=== PATIENT | female | born 1995 | race Two or more races ===

== ENCOUNTER → 2024-09-03 | Day surgery (SDC) | payer OTHER ==
[2024-08-28 10:25] LABS: HEMATOCRIT 38.9 % (36.0-45.00); HEMOGLOBIN 13.3 g/dL (12.0-15.00); MEAN CELL VOLUME 92.5 fL (80.00-100.00); MEAN CORPUSCULAR HEMOGLOBIN 31.6 pg (27.00-32.0); MEAN CORPUSCULAR HGB CONC 34.2 g/dl (32.0-36.0); PLATELET COUNT 284 K/uL (150-450); RED BLOOD COUNT 4.21 M/uL (4.00-6.00); RED CELL DISTRIBUTION WIDTH 13.4 % (11.5-14.5)
[2024-08-28 10:27] LABS: PH,URINE 7.5 (5.0-8.0); URINE APPEARANCE Clear; URINE BILIRRUBIN Negative (NEGATIVE); URINE BLOOD Negative; URINE COLOR Yellow; URINE GLUCOSE Negative (NEGATIVE); URINE KETONE Negative (NEGATIVE); URINE LEUKOCYTE Trace; URINE NITRATE Negative; URINE PROTEIN Negative (NEGATIVE)
[2024-08-28 10:29] LABS: URINE BACTERIA 2369.4 uL (0.0-1933); URINE WBC 35.9 uL (0.0-23.2)
[2024-08-28 10:41] LABS: URINE CAST 0.14 uL (0.0-1.40)
[2024-08-28 10:43] LABS: INR 1.05; PARTIAL THROMBOPLASTIN TIME 25.6 SECONDS (22.0-34.0); PROTHROMBIN TIME 11.4 SECONDS (9.0-11.5)
[2024-08-28 10:51] VITALS: BP 107/71
[2024-08-28 11:11] LABS: ALBUMIN 3.8 gm/dL (3.4-5.0); BILIRUBIN TOTAL 0.67 mg/dL (0.3-1.2); CALCIUM 9.4 mg/dL (8.5-10.1); CREATININE SERUM 0.67 mg/dL (0.55-1.02); GFR 104.06; GLOBULINA 3.8 G/DL (2.4-3.5); POTASSIUM 3.92 mEq/L (3.5-5.1); TOTAL PROTEIN 7.6 gm/dL (6.4-8.2)
[~2024-09-03] VITALS: Ht 157.5 cm; Wt 47.6 kg
[~2024-09-03] MED LIST: IBU800 MG PO; ZOFRAN8 MG PO
== END | disposition home or self-care (01) ==
LOC: ADM 08-28 08:00 → CIR.AMB 09-02 07:00
PROVIDERS: ATTEND Student in an Organized Health Care Education/Training Program
DX: D06.9 Carcinoma in situ of cervix, unspecified (principal); K29.70 Gastritis, unspecified, without bleeding; F41.9 Anxiety disorder, unspecified

== ENCOUNTER 2024-09-14 12:33 | Emergency (ER) | payer OTHER ==
[~2024-09-14] VITALS: Ht 157.5 cm; Wt 47.6 kg
[2024-09-14 13:42] LABS: HEMATOCRIT 38.5 % (36.0-45.00); HEMOGLOBIN 12.9 g/dL (12.0-15.00); MEAN CORPUSCULAR HEMOGLOBIN 31.3 pg (27.00-32.0); MEAN CORPUSCULAR HGB CONC 33.6 g/dl (32.0-36.0); PLATELET COUNT 249 K/uL (150-450); RED BLOOD COUNT 4.14 M/uL (4.00-6.00); RED CELL DISTRIBUTION WIDTH 12.9 % (11.5-14.5)
== END 2024-09-14 14:46 | disposition home or self-care (01) ==
LOC: ER 12:36
PROVIDERS: General Practice
DX: N93.8 Other specified abnormal uterine and vaginal bleeding (principal); L40.8 Other psoriasis